=== PATIENT | female | born 1955 ===

== ENCOUNTER 2021-10-04 12:15 | Inpatient (IN) | payer OTHER ==
[~2021-10-04] VITALS: Ht 165.1 cm; Wt 98.9 kg
[2021-10-04] MEDS ORDERED: TENORMIN25 MG PO (14:23)
[2021-10-04] MEDS ORDERED: LOSARTAN-HCTZ1 EAC1 PO (14:23)
[2021-10-04] MEDS ORDERED: IMODIUM A-D2 M2 PO (14:23)
[2021-10-04] MEDS ORDERED: LEVO-T150 MCG PO (14:23)
[2021-10-04] MEDS ORDERED: GABAPENTIN100 MG (14:24)
== END 2021-10-06 16:44 | disposition home or self-care (01) | DRG 735 ==
LOC: O/R 10-05 06:18 → SURH 10-05 08:30 → OB/GYN 10-05 14:33
PROVIDERS: ADMIT Specialist; ATTEND Specialist
PROC: 07TC4ZZ Resection of Pelvis Lymphatic, Percutaneous Endoscopic Approach (ICD-10-PCS; 2021-10-05)
PROC: 0UT9FZZ Resection of Uterus, Via Natural or Artificial Opening With Percutaneous Endoscopic Assistance (ICD-10-PCS; 2021-10-05)
PROC: 0UT7FZZ Resection of Bilateral Fallopian Tubes, Via Natural or Artificial Opening With Percutaneous Endoscopic Assistance (ICD-10-PCS; 2021-10-05)
PROC: 0UT2FZZ Resection of Bilateral Ovaries, Via Natural or Artificial Opening With Percutaneous Endoscopic Assistance (ICD-10-PCS; principal; 2021-10-05 08:30)
DX: C54.1 Malignant neoplasm of endometrium (principal); D25.1 Intramural leiomyoma of uterus; Z20.822 Contact with and (suspected) exposure to COVID-19